=== PATIENT | male | born 1985 | race Hispanic/Latino ===

== ENCOUNTER 2016-09-30 01:55 | Emergency (ER) | payer BC ==
[2016-09-30 02:12] VITALS: BP 127/77; PULSE 77; RESP 16; TEMP 98.7; O2SAT 98
--- NOTE | 2016-09-30 02:32 | ED PDOC ---
HPI: Wound Care - HPI Time Seen by Provider: 09/30/16 02:06 Chief Complaint (Nursing): Abnormal Skin Integrity Chief Complaint (Provider): eyebrow laceration History Per: Patient Additional Complaint(s): 31 year old male with no past medical history presents to ED with laceration to left eyebrow. Patient states he tripped and fell and struck face against the ground. He did not sustain LOC. He states tetanus is up to date. Patient walked here for evaluation. He denies any acute pain to affected area. Past Medical History Reviewed: Historical Data, Nursing Documentation, Vital Signs Vital Signs: Last Vital Signs Temp 98.7 F 09/30/16 02:10 Pulse 77 09/30/16 02:10 Resp 16 09/30/16 02:10 BP 127/77 09/30/16 02:10 Pulse Ox 98 09/30/16 02:10 - Medical History PMH: No Chronic Diseases - Surgical History Surgical History: No Surg Hx - Family History Family History: States: No Known Family Hx - Living Arrangements Living Arrangements: With Friends/Others - Social History Current smoker - smoking cessation education provided: No Alcohol: Social Drugs: Denies - Immunization History Hx Tetanus Toxoid Vaccination: Yes - Allergies Allergies/Adverse Reactions: Allergies Allergy/AdvReac Type Severity Reaction Status Date / Time No Known Allergies Allergy Verified 09/30/16 02:09 Review of Systems ROS Statement: Except As Marked, All Systems Reviewed And Found Negative Skin: Positive for: Other (left eyebrow laceration) Physical Exam - Reviewed Nursing Documentation Reviewed: Yes Vital Signs Reviewed: Yes - Physical Exam Appears: Positive for: Well, Non-toxic, No Acute Distress Skin: Negative for: Rash Eye Exam: Positive for: Other (4 cm by 1.5 cm laceration noted through left eyebrow with moderate active bleeding, (+) exposure of subq and muscle layers. Slight ecchymosis noted to left upper eyelid) Neurologic/Psych: Positive for: Alert, Oriented, Gait (steady) - ECG O2 Sat by Pulse Oximetry: 98 Pulse Ox Interpretation: Normal Medical Decision Making Medical Decision Makin31 year old with complex facial laceration Patient was offered repair by sign writer letterer or painter and he was made aware of potential for scarring. Patient asked about plastic surgery consult and sign writer letterer or painter explained that there is no front desk agent plastic surgeon available at this time. Patient called his parents who encouraged him to go to another facility where a plastic surgeon is available. Patient states he prefers to go to another hospital. Case was discussed in detail with Dr. Garces. Patient was signed out against medical advice. The risks and dangers of signing out against medical advice were discussed in detail with patient and include but are not limited to worsening of current condition, wound infection, possible . Patient understands these risks and still wishes to leave against medical advice. Patient is competent and capable of making this informed decision. Dry pressure dressing was applied to open wound, N/V intact s/p placement. Patient was instructed to seek medical attention from plastic surgeon ROBERTO. Disposition - Clinical Impression Clinical Impression: Eyebrow laceration, Left against medical advice - Patient ED Disposition Is Patient to be Admitted: No Counseled Patient/Family Regarding: Need For Followup - Disposition Referrals: [facility] [Outside] Disposition: Routine/Home Disposition Time: 02:27 Condition: FAIR Additional Instructions: Seek care of a plastic surgeon ROBERTO. Instructions: Laceration Without Closure (ED), Against Medical Advice (ED)
== END 2016-09-30 02:32 | disposition left against medical advice (07) ==
LOC: H.ER 01:55
DX: S01.81XA Laceration without foreign body of other part of head, initial encounter (principal); W01.0XXA Fall on same level from slipping, tripping and stumbling without subsequent striking against object, initial encounter; Y92.89 Other specified places as the place of occurrence of the external cause